=== PATIENT | female | born 1980 | race Caucasian/White ===

== ENCOUNTER 2019-06-12 05:15 | Day surgery (SDC) | payer OTHER ==
[~2019-06-12 05:15] MED LIST: INVOKANA300 MG PO; METFORMIN HCL500 M3 PO; MULTI VITAMIN1 EACH PO; TUSSIN DM CLEA118 M1 PO; WAL-FEX ALLERG180 MG PO
[2019-06-12] MEDS ORDERED: COLACE100 MG PO (10:22)
[2019-06-12] MEDS ORDERED: NEURONTIN600 M1 PO (10:22)
[2019-06-12] MEDS ORDERED: PERCOCET 5-3251 EACH PO (10:22)
== END 2019-06-12 15:50 | disposition home or self-care (01) ==
LOC: CIR.AMB 05:15
DX: K40.20 Bilateral inguinal hernia, without obstruction or gangrene, not specified as recurrent (principal)

== ENCOUNTER 2019-06-24 10:02 | Emergency (ER) | payer OTHER ==
[~2019-06-24] VITALS: Ht 167.6 cm; Wt 95.3 kg
[~2019-06-24 10:02] MED LIST changes: +COLACE100 MG PO; +NEURONTIN600 M1 PO; +PERCOCET 5-3251 EACH PO
[2019-06-24] MEDS ORDERED: LEVAQUIN750 MG PO (17:11)
[2019-06-24] MEDS ORDERED: MUPIROCIN15 GM TOP (17:11)
[2019-06-24] MEDS ORDERED: INTESTINEX680 M1 PO (17:11)
== END 2019-06-24 17:25 | disposition home or self-care (01) ==
LOC: ER 10:02
DX: L08.89 Other specified local infections of the skin and subcutaneous tissue (principal); T81.49XA Infection following a procedure, other surgical site, initial encounter; Y83.8 Other surgical procedures as the cause of abnormal reaction of the patient, or of later complication, without mention of misadventure at the time of the procedure; Y92.89 Other specified places as the place of occurrence of the external cause